=== PATIENT | female | born 1985 | race Caucasian/White ===

== ENCOUNTER 2020-10-23 15:10 | Emergency (ER) | payer OTHER ==
[~2020-10-23] VITALS: Ht 175.3 cm; Wt 74.8 kg
[2020-10-23] MEDS ORDERED: HYDROCODON-ACE1 EAC7 PO (16:04)
[2020-10-23 16:08] VITALS: BP 157/94
== END 2020-10-23 16:09 | disposition home or self-care (01) ==
LOC: M.ERS 15:10
DX: S61.512A Laceration without foreign body of left wrist, initial encounter (principal); Z85.41 Personal history of malignant neoplasm of cervix uteri; Z88.0 Allergy status to penicillin; W26.0XXA Contact with knife, initial encounter; Y93.89 Activity, other specified; Y92.89 Other specified places as the place of occurrence of the external cause; Y99.8 Other external cause status